=== PATIENT | male | born 1965 | race Caucasian/White ===

== ENCOUNTER 2018-03-12 09:29 | Inpatient (IN) | payer BC ==
[~2018-03-12] VITALS: Ht 188 cm; Wt 126.8 kg
[~2018-03-12 09:29] MED LIST: ASPI-621 PO; GLYB5TAB3 PO; LISI-464; WARF-36
[2018-03-12] MEDS ORDERED: PLEASE ENTER HEIGHT AND WEIGHT MC SCH (10:00)
[2018-03-12] MEDS ORDERED: METHOCARBAMOL 750 MG TABLET PO ONE (10:00)
[2018-03-12] MEDS ORDERED: KETOROLAC 30 MG/1 ML IVPush ONE (10:00)
[2018-03-12] MEDS ORDERED: SODIUM CHLORIDE FLUSH 10ML SYR IVF ONE (10:00)
[2018-03-12] MEDS ORDERED: DIAZEPAM 5 MG/ML, 2ML IVPush ONE (10:00)
[2018-03-12] MEDS ORDERED: METHOCARBAMOL 750 MG TABLET ONE (10:03)
[2018-03-12] MEDS ORDERED: KETOROLAC 30 MG/1 ML ONE (10:03)
[2018-03-12] MEDS ORDERED: ACETAMINOPHEN 325 MG TABLET PO PRN (13:00)
[2018-03-12 13:33] VITALS: BP 107/61
[2018-03-12 14:06] LABS: BASOPHILS # (AUTO) 0.01 x10^3/uL (0-0.1); BASOPHILS % (AUTO) 0 % (0-1); EOSINOPHILS # (AUTO) 0.04 x10^3/uL (0-0.4); EOSINOPHILS % (AUTO) 1 % (1-7); LYMPHOCYTES # (AUTO) 1.65 x10^3/uL (1-3.4); LYMPHOCYTES % (AUTO) 23 % (22-44); MD NO; MEAN CORPUSCULAR HEMOGLOBIN 30.6 pg (27.5-34.5); MEAN CORPUSCULAR HGB CONC 33.9 g/dL (33.2-36.2); MEAN CORPUSCULAR VOLUME 90.2 fL (81-97); MEAN PLATELET VOLUME 9.1 fL (7.4-10.4); MONOCYTES # (AUTO) 0.81 x10^3/uL (0.2-0.8); MONOCYTES % (AUTO) 12 % (2-9); NEUTROPHILS # (AUTO) 4.55 x10^3/uL (1.8-6.8); NEUTROPHILS % (AUTO) 64 % (42-75); PLATELET COUNT 330 x10^3/uL (130-400); RED BLOOD COUNT 4.37 x10^6/uL (4.38-5.82); RED CELL DISTRIBUTION WIDTH 14.6 % (9.4-14.8)
[2018-03-12 14:15] LABS: ALBUMIN 3.4 g/dL (3.4-5.0); ANION GAP 7 mmol/L (5-15); CALCIUM 9.8 mg/dL (8.5-10.1); CHLORIDE 110 mmol/L (98-107)
[2018-03-12 14:18] LABS: ALANINE AMINOTRANSFERASE 26 U/L (12-78); ALKALINE PHOSPHATASE 45 U/L (45-117); BILIRUBIN,TOTAL 0.8 mg/dL (0.2-1.0); CREATININE 1.85 mg/dL (0.7-1.3); TOTAL PROTEIN 7.5 g/dL (6.4-8.2)
[2018-03-12 18:10] LABS: CULTURE INDICATED? YES; MICROSCOPIC INDICATED
[2018-03-12] MEDS ORDERED: KETOROLAC 30 MG/1 ML IVPush PRN (19:00)
[2018-03-12] MEDS ORDERED: FENO145T30 PO (19:52)
[2018-03-12] MEDS: GlyBURIDE 5 MG TABLET PO SCH (19:52)
[2018-03-12] MEDS: FENOFIBRATE 145 MG TABLET PO SCH (20:24)
[2018-03-12 20:38] LABS: PROTHROMBIN TIME 59.2 Seconds (9.6-11.5)
[2018-03-12 20:39] LABS: INTERNATIONAL NORMALIZED RATIO 5.89 (0.93-1.1)
[2018-03-12] MEDS ORDERED: morphine SULFATE/PF 0.5 MG/ML, 10ML IV PRN (21:00)
[2018-03-12] MEDS ORDERED: METHOCARBAMOL 750 MG TABLET PO PRN (21:00)
[2018-03-12 21:24] VITALS: BP 104/60
[2018-03-13 03:55] VITALS: BP 103/54
[2018-03-13 05:48] LABS: BASOPHILS # (AUTO) 0.01 x10^3/uL (0-0.1); BASOPHILS % (AUTO) 0 % (0-1); EOSINOPHILS # (AUTO) 0.11 x10^3/uL (0-0.4); EOSINOPHILS % (AUTO) 2 % (1-7); LYMPHOCYTES # (AUTO) 1.76 x10^3/uL (1-3.4); LYMPHOCYTES % (AUTO) 28 % (22-44); MD NO; MEAN CORPUSCULAR HGB CONC 33.9 g/dL (33.2-36.2); MEAN CORPUSCULAR VOLUME 91.6 fL (81-97); MEAN PLATELET VOLUME 9.2 fL (7.4-10.4); MONOCYTES # (AUTO) 0.73 x10^3/uL (0.2-0.8); MONOCYTES % (AUTO) 12 % (2-9); NEUTROPHILS # (AUTO) 3.61 x10^3/uL (1.8-6.8); NEUTROPHILS % (AUTO) 58 % (42-75); PLATELET COUNT 301 x10^3/uL (130-400); RED BLOOD COUNT 4.16 x10^6/uL (4.38-5.82)
[2018-03-13 05:52] LABS: CHLORIDE 113 mmol/L (98-107)
[2018-03-13 06:17] LABS: ANION GAP 8 mmol/L (5-15); CALCIUM 10.5 mg/dL (8.5-10.1); CREATININE 2.08 mg/dL (0.7-1.3)
[2018-03-13] MEDS ORDERED: ASPIRIN 81 MG TABLET EC PO SCH (09:00)
[2018-03-13] MEDS: HYDROCHLOROTHIAZIDE 25 MG TABLET PO SCH (09:10)
[2018-03-13] MEDS: LISINOPRIL 20 MG TABLET PO SCH (09:15)
[2018-03-13] MEDS: GlyBURIDE 5 MG TABLET PO SCH ×2 (09:15→19:21)
[2018-03-13 09:45] VITALS: BP 94/57
[2018-03-13] MEDS: SODIUM CHLORIDE 0.9% 1,000 ML IV SCH ×2 (13:18→19:10)
[2018-03-13 14:00] VITALS: BP 97/60
[2018-03-13] MEDS ORDERED: morphine SULFATE/PF 1 MG/ML, 10ML ONE (15:06)
[2018-03-13] MEDS ORDERED: GADOBUTROL 10 MMOL/10 ML PFS ONE (15:41)
[2018-03-13] MEDS: FENOFIBRATE 145 MG TABLET PO SCH (19:21)
[2018-03-13 20:49] VITALS: BP 98/59
[2018-03-14 01:11] VITALS: BP 105/56
[2018-03-14] MEDS: SODIUM CHLORIDE 0.9% 1,000 ML IV SCH ×4 (02:43→22:17)
[2018-03-14 05:56] LABS: ANION GAP 7 mmol/L (5-15); CALCIUM 9.8 mg/dL (8.5-10.1); CHLORIDE 112 mmol/L (98-107); CREATININE 1.58 mg/dL (0.7-1.3)
[2018-03-14] MEDS: HYDROCHLOROTHIAZIDE 25 MG TABLET PO SCH (06:45)
[2018-03-14] MEDS: LISINOPRIL 20 MG TABLET PO SCH (06:46)
[2018-03-14] MEDS: GlyBURIDE 5 MG TABLET PO SCH ×2 (06:46→20:38)
[2018-03-14 07:42] VITALS: BP 110/67
[2018-03-14] MEDS: METHOCARBAMOL 750 MG TABLET PO PRN (13:38)
[2018-03-14 13:56] VITALS: BP 97/57
[2018-03-14] MEDS: ACETAMINOPHEN 500 MG TABLET PO SCH ×2 (15:29→20:38)
[2018-03-14 19:17] VITALS: BP 96/48
[2018-03-14] MEDS: FENOFIBRATE 145 MG TABLET PO SCH (20:38)
[2018-03-14 20:41] VITALS: BP 120/58
[2018-03-15 01:01] LABS: MICROSCOPIC NOT IND
[2018-03-15 01:04] LABS: CULTURE INDICATED? NO
[2018-03-15 01:22] VITALS: BP 91/51
[2018-03-15] MEDS: ACETAMINOPHEN 500 MG TABLET PO SCH ×4 (01:31→20:24)
[2018-03-15 01:35] VITALS: BP 95/57
[2018-03-15] MEDS: SODIUM CHLORIDE 0.9% 1,000 ML IV SCH ×2 (05:05→11:47)
[2018-03-15 05:19] LABS: BASOPHILS # (AUTO) 0.03 x10^3/uL (0-0.1); BASOPHILS % (AUTO) 0 % (0-1); EOSINOPHILS # (AUTO) 0.14 x10^3/uL (0-0.4); EOSINOPHILS % (AUTO) 2 % (1-7); LYMPHOCYTES # (AUTO) 1.94 x10^3/uL (1-3.4); LYMPHOCYTES % (AUTO) 24 % (22-44); MD NO; MEAN CORPUSCULAR HEMOGLOBIN 30.7 pg (27.5-34.5); MEAN CORPUSCULAR HGB CONC 33.7 g/dL (33.2-36.2); MEAN CORPUSCULAR VOLUME 91.2 fL (81-97); MEAN PLATELET VOLUME 8.8 fL (7.4-10.4); MONOCYTES # (AUTO) 0.81 x10^3/uL (0.2-0.8); MONOCYTES % (AUTO) 10 % (2-9); NEUTROPHILS # (AUTO) 5.02 x10^3/uL (1.8-6.8); NEUTROPHILS % (AUTO) 63 % (42-75); PLATELET COUNT 307 x10^3/uL (130-400); RED CELL DISTRIBUTION WIDTH 14.4 % (9.4-14.8)
[2018-03-15 05:29] LABS: ANION GAP 8 mmol/L (5-15); CALCIUM 9.4 mg/dL (8.5-10.1); CHLORIDE 113 mmol/L (98-107)
[2018-03-15 05:30] LABS: CREATININE 1.57 mg/dL (0.7-1.3)
[2018-03-15] MEDS: GlyBURIDE 5 MG TABLET PO SCH ×2 (06:37→18:17)
[2018-03-15 07:10] VITALS: BP 105/64
[2018-03-15 07:46] LABS: INTERNATIONAL NORMALIZED RATIO 2.43 (0.93-1.1); PROTHROMBIN TIME 24.8 Seconds (9.6-11.5)
[2018-03-15 08:30] VITALS: BP 127/76
[2018-03-15] MEDS: LISINOPRIL 20 MG TABLET PO SCH (08:41)
[2018-03-15] MEDS: HYDROCHLOROTHIAZIDE 25 MG TABLET PO SCH (08:42)
[2018-03-15] MEDS: METHOCARBAMOL 750 MG TABLET PO PRN (14:02)
[2018-03-15 14:04] VITALS: BP 120/59
[2018-03-15] MEDS ORDERED: WARFARIN 5 MG TABLET PO-COUM ONE (18:00)
[2018-03-15 19:49] VITALS: BP 105/62
[2018-03-15] MEDS: PREGABALIN 25 MG CAPSULE PO SCH (20:25)
[2018-03-15] MEDS: FENOFIBRATE 145 MG TABLET PO SCH (20:25)
[2018-03-16 00:54] VITALS: BP 107/66
[2018-03-16] MEDS: ACETAMINOPHEN 500 MG TABLET PO SCH ×4 (02:28→20:39)
[2018-03-16 05:27] LABS: BASOPHILS # (AUTO) 0.01 x10^3/uL (0-0.1); BASOPHILS % (AUTO) 0 % (0-1); EOSINOPHILS # (AUTO) 0.16 x10^3/uL (0-0.4); EOSINOPHILS % (AUTO) 2 % (1-7); LYMPHOCYTES # (AUTO) 2.25 x10^3/uL (1-3.4); LYMPHOCYTES % (AUTO) 28 % (22-44); MD NO; MEAN CORPUSCULAR HEMOGLOBIN 30.5 pg (27.5-34.5); MEAN CORPUSCULAR HGB CONC 33.1 g/dL (33.2-36.2); MEAN CORPUSCULAR VOLUME 92.2 fL (81-97); MEAN PLATELET VOLUME 8.8 fL (7.4-10.4); MONOCYTES # (AUTO) 0.73 x10^3/uL (0.2-0.8); MONOCYTES % (AUTO) 9 % (2-9); NEUTROPHILS # (AUTO) 4.93 x10^3/uL (1.8-6.8); NEUTROPHILS % (AUTO) 61 % (42-75); PLATELET COUNT 325 x10^3/uL (130-400); RED BLOOD COUNT 3.97 x10^6/uL (4.38-5.82); RED CELL DISTRIBUTION WIDTH 14.4 % (9.4-14.8)
[2018-03-16 05:40] LABS: INTERNATIONAL NORMALIZED RATIO 1.98 (0.93-1.1); PROTHROMBIN TIME 20.1 Seconds (9.6-11.5)
[2018-03-16 06:15] LABS: ANION GAP 7 mmol/L (5-15); CALCIUM 9.7 mg/dL (8.5-10.1); CHLORIDE 112 mmol/L (98-107); CREATININE 1.56 mg/dL (0.7-1.3)
[2018-03-16 08:36] VITALS: BP 105/64
[2018-03-16] MEDS: PREGABALIN 25 MG CAPSULE PO SCH ×3 (08:38→20:39)
[2018-03-16] MEDS: LISINOPRIL 20 MG TABLET PO SCH (08:38)
[2018-03-16] MEDS: HYDROCHLOROTHIAZIDE 25 MG TABLET PO SCH (08:39)
[2018-03-16 15:00] VITALS: BP 93/53
[2018-03-16] MEDS ORDERED: LIDODERM 5% PATCH TD ONE (15:00)
[2018-03-16] MEDS ORDERED: WARFARIN 3 MG TABLET PO-COUM ONE (18:00)
[2018-03-16 19:35] VITALS: BP 112/62
[2018-03-16] MEDS: FENOFIBRATE 145 MG TABLET PO SCH (20:39)
[2018-03-17 01:17] VITALS: BP 108/64
[2018-03-17] MEDS: ACETAMINOPHEN 500 MG TABLET PO SCH ×3 (02:01→17:54)
[2018-03-17 04:40] LABS: ANION GAP 10 mmol/L (5-15); CALCIUM 10.2 mg/dL (8.5-10.1); CHLORIDE 106 mmol/L (98-107)
[2018-03-17 04:41] LABS: INTERNATIONAL NORMALIZED RATIO 2.03 (0.93-1.1); PROTHROMBIN TIME 20.6 Seconds (9.6-11.5)
[2018-03-17 04:42] LABS: CREATININE 1.92 mg/dL (0.7-1.3)
[2018-03-17] MEDS ORDERED: DEXTROSE 50%, 50ML SYRINGE IVPush PRN (05:30)
[2018-03-17] MEDS ORDERED: GLUCAGON 1 MG IM PRN (05:30)
[2018-03-17] MEDS ORDERED: DEXTROSE 4 GM TAB.CHEW PO PRN (05:30)
[2018-03-17] MEDS: INSULIN LISPRO 100 UNITS/ML, PEN SQ-INSULIN SCH ×4 (07:00→21:50)
[2018-03-17 08:30] VITALS: BP 121/71
[2018-03-17] MEDS: LISINOPRIL 20 MG TABLET PO SCH ×2 (09:00→11:20)
[2018-03-17] MEDS: PREGABALIN 25 MG CAPSULE PO SCH ×3 (09:00→21:06)
[2018-03-17] MEDS: SODIUM CHLORIDE FLUSH 10ML SYR IVF SCH ×2 (09:00→21:06)
[2018-03-17 14:30] VITALS: BP 116/69
[2018-03-17] MEDS ORDERED: METH750T2 PO (17:41)
[2018-03-17] MEDS ORDERED: PREG25CA PO (17:41)
[2018-03-17] MEDS ORDERED: PRED10TA14 PO (17:41)
[2018-03-17] MEDS ORDERED: LISI-170 PO (17:41)
[2018-03-17] MEDS ORDERED: WARFARIN 3 MG TABLET PO-COUM ONE (18:00)
[2018-03-17 19:57] VITALS: BP 128/71
[2018-03-17] MEDS ORDERED: INSULIN LISPRO 100 UNITS/ML, PEN SQ-INSULIN SCH ×2 (21:00→21:14)
[2018-03-17] MEDS: FENOFIBRATE 145 MG TABLET PO SCH (21:06)
[2018-03-18 01:33] VITALS: BP 100/5
[2018-03-18] MEDS: ACETAMINOPHEN 500 MG TABLET PO SCH ×3 (02:08→18:04)
[2018-03-18 05:19] LABS: CALCIUM 10.2 mg/dL (8.5-10.1); CHLORIDE 108 mmol/L (98-107); INTERNATIONAL NORMALIZED RATIO 2.74 (0.93-1.1); PROTHROMBIN TIME 27.7 Seconds (9.6-11.5)
[2018-03-18 05:22] LABS: ANION GAP 8 mmol/L (5-15)
[2018-03-18] MEDS ORDERED: LIDODERM 5% PATCH TD SCH (05:30)
[2018-03-18] MEDS: INSULIN LISPRO 100 UNITS/ML, PEN SQ-INSULIN SCH ×3 (07:00→16:15)
[2018-03-18 07:07] VITALS: BP 103/56
[2018-03-18] MEDS: PREGABALIN 25 MG CAPSULE PO SCH ×2 (08:22→16:15)
[2018-03-18] MEDS: LISINOPRIL 20 MG TABLET PO SCH (08:22)
[2018-03-18] MEDS: SODIUM CHLORIDE FLUSH 10ML SYR IVF SCH (08:22)
[2018-03-18 14:16] VITALS: BP 101/54
[2018-03-18] MEDS ORDERED: WARFARIN 3 MG TABLET PO-COUM ONE (18:00)
== END 2018-03-18 20:00 | disposition home or self-care (01) | DRG 551 ==
LOC: ED 11:36 → OBSVTOIN 11:37 → EDIP 11:37 → ED 12:12 → 3NE 13:20
PROVIDERS: ADMIT Family Medicine; ATTEND Family Medicine
DX: M48.061 Spinal stenosis, lumbar region without neurogenic claudication (principal); I62.1 Nontraumatic extradural hemorrhage; N17.9 Acute kidney failure, unspecified; E11.65 Type 2 diabetes mellitus with hyperglycemia; F44.4 Conversion disorder with motor symptom or deficit; G89.29 Other chronic pain; I87.2 Venous insufficiency (chronic) (peripheral); M47.26 Other spondylosis with radiculopathy, lumbar region; M10.9 Gout, unspecified; M48.07 Spinal stenosis, lumbosacral region; N18.9 Chronic kidney disease, unspecified; I12.9 Hypertensive chronic kidney disease with stage 1 through stage 4 chronic kidney disease, or unspecified chronic kidney disease; R82.90 Unspecified abnormal findings in urine; M25.851 Other specified joint disorders, right hip; M13.852 Other specified arthritis, left hip; M13.851 Other specified arthritis, right hip; F17.210 Nicotine dependence, cigarettes, uncomplicated; M51.16 Intervertebral disc disorders with radiculopathy, lumbar region; R79.1 Abnormal coagulation profile; Z53.20 Procedure and treatment not carried out because of patient's decision for unspecified reasons; Z79.01 Long term (current) use of anticoagulants; Z79.84 Long term (current) use of oral hypoglycemic drugs; Z86.711 Personal history of pulmonary embolism; Z86.718 Personal history of other venous thrombosis and embolism; Z79.82 Long term (current) use of aspirin; Z88.6 Allergy status to analgesic agent
CPT/HCPCS: 36415; 72131; 72158; 80048; 80053; 81001; 81003; 82962; 85025; 85610; 87086; 99285; A9585; J1885; J2274; J3360; J1815; J7030; J7512